=== PATIENT | male | born 1955 | race African-American/Black ===

== ENCOUNTER → 2020-05-30 | Day surgery (SDC) | payer MEDICARE, OTHER ==
[2020-05-25 12:13] LABS: BASOPHILS # (AUTO) 0.1 (0.0-0.1); BASOPHILS % 0.9 % (0.0-1.0); EOSINOPHILS # (AUTO) 0.2 (0.0-0.4); EOSINOPHILS % 3.4 % (0.0-6.0); HEMATOCRIT 32.8 % (38.2-49.6); HEMOGLOBIN 10.7 g/dL (14.0-18.0); LYMPHOCYTES # (AUTO) 2.2 (1.0-3.2); LYMPHOCYTES % 34.3 % (18.0-39.1); MEAN CORPUSCULAR HEMOGLOBIN 27.7 pg (28-32); MEAN CORPUSCULAR HGB CONC 32.6 g/dL (31-35); MONOCYTES # (AUTO) 0.6 (0.2-0.8); MONOCYTES % 9.8 % (4.4-11.3); NEUTROPHILS # (AUTO) 3.3 (2.1-6.9); NEUTROPHILS % 51.4 % (38.7-80.0); PLATELET COUNT 288 x10e3/uL (140-360); RED BLOOD COUNT 3.86 x10e6/uL (4.3-5.7); RED CELL DISTRIBUTION WIDTH 13.6 % (11.7-14.4)
[2020-05-25 12:27] LABS: ANION GAP 14.9 mmol/L (8-16); BLOOD UREA NITROGEN 16 mg/dL (7-26); BUN/CREATININE RATIO 17 (6-25); CALCIUM 9.7 mg/dL (8.4-10.2); CARBON DIOXIDE 22 mmol/L (22-29); CHLORIDE 107 mmol/L (98-107); CREATININE, SERUM 0.92 mg/dL (0.72-1.25); EST GLOMERULAR FILTRATION RATE > 60 ML/MIN (60-); GLUCOSE 115 mg/dL (74-118); POTASSIUM 3.9 mmol/L (3.5-5.1); SODIUM 140 mmol/L (136-145)
--- NOTE | 2020-05-25 13:31 | Diagnostic Imaging Report ---
EXAMINATION: PA and lateral views of the chest. COMPARISON: None CLINICAL HISTORY: Preoperative examination for urological procedure DISCUSSION: The lungs are well inflated. No focal airspace consolidation, pleural effusion, or pneumothorax. Tortuous thoracic aorta with otherwise unremarkable cardiomediastinal contour. No acute osseous abnormalities. IMPRESSION: No acute cardiopulmonary abnormalities. Signed by: Dr. Edward Wilson M.D. on 05/25/2020 1:27 PM
[~2020-05-30] MED LIST: AMLODIPINE BESYL5 MG PO; ASPIRIN81 MG PO; B&O 60MG R/S 60 MG SUPP PR ONE; CEFTRIAXONE SOD 1 GM/NS 50 ML 50 ML IV ONE; CRANBERRY250 MG PO; DEXAMETHASONE SOD PHOS INJ 4 MG/ML VIAL ONE; FENTANYL CITRATE/PF 100MCG/2 ML INJ ONE; FLUOXETINE HCL20 MG PO; FOLIC ACID PO; GENTAMICIN 80MG/NS 100 ML 100 ML IV ONE; IOPAMIDOL 300MG/ML 50ML INFUS..BTL IV ONE; LIDOCAINE HCL 2% LOCAL INJ 5 ML SDV VIAL INJ ONE; METFORMIN HCL500 MG PO; MULTIVITAMINS1 EAC7 PO; ONDANSETRON HCL INJ 2MG/ML 2ML 2 MG/ML VIAL ONE; PROPOFOL IV EMULSION 10 MG/ML 20 ML VIAL ONE; RIVASTIGMINE1.5 MG PO; SEVOFLURANE INHAL SOLN 250 ML PEN BTL ONE; VITAMIN D3 PO; XARELTO20 MG PO
[2020-05-30 14:05] VITALS: BP 148/91
--- NOTE | 2020-06-08 22:14 | Operative Report ---
DATE OF PROCEDURE: 05/30/2020 SURGEON: Nirmal Menon MD PREOPERATIVE DIAGNOSES: 1. Benign prostatic hyperplasia. 2. Urinary retention. 3. Gross hematuria. 4. Microscopic hematuria. 5. Urinary tract infections. 6. Chronic renal insufficiency. 7. Early traumatic hypospadias. OPERATIONS PERFORMED: 1. Cystourethroscopy with bilateral ureteral catheterization and retrograde ureteropyelography (separate procedure performed for the hematuria and urine tract infections and renal insufficiency). 2. Interpretation of retrograde ureteropyelography, no radiologist present. 3. Supervision of fluoroscopy, no radiologist present. 4. Cystourethroscopy with implantation of UroLift implants (separate surgery performed for the obstructive benign prostatic hyperplasia). 5. Complicated catheterization (separate procedure performed for the urinary retention and traumatic hypospadias). ANESTHESIA: General. COMPLICATIONS: None. CLINICAL SUMMARY: Juani Singh is a 64-year-old man with urinary retention. He was supposed to be on Flomax, but he ran out of it. The patient is brought for UroLift in hopes of getting him out of urinary retention. He and the family are aware of the risks of bleeding, infection, injury to adjacent structures, failure, potential need for additional procedures and elected to proceed. OPERATIVE PROCEDURE IN DETAIL: Informed consent was verified. Juani Singh was properly identified, taken to the operating room, placed on the cystoscopy table in supine position. Anesthesia was uneventfully begun. The patient was then carefully and gently repositioned in dorsal lithotomy position with all pressure points well padded. His Singh catheter was removed and his genitalia were prepared and draped in usual sterile fashion. The cystoscope sheath with the visual obturator in place was atraumatically inserted into the patient's urethra and was guided unremarkable. The unremarkable urethra through normal sphincteric region through the prostate bed, which was significant for severely obstructive BPH with kissing lateral lobes and elevated median bar and median lobe formation. Panendoscopy of the urinary bladder revealed heavy trabeculations, but no tumors and no stones were identified. An 8-[place] catheter was used to cannulate each ureter and retrograde ureteropyelograms were performed. Interpretation of retrograde ureteropyelography contrast was instilled in retrograde fashion bilaterally. The ureteral orifices were displaced in a cephalad fashion that was extremely dramatic indicating the patient has a very large prostate that is pushing the bladder in a cephalad direction. There was bilateral distal ureterectasis, most likely from obstruction from the thickened bladder wall and J-hooking was noted. Nevertheless, unobstructed drainage was observed bilaterally fluoroscopically, but there was ureteral tortuosity. No suspicious lesions and no filling defects and no stones could be identified. The cystoscope was withdrawn. The UroLift cystoscope was then placed. We then implanted 4 UroLift implants and all were implanted anterolaterally, 2 were placed on either side, 1.5 cm distal to the bladder neck and 2 were placed on either side at the level of the verumontanum. We did obtain an anterior continuous channel, which we hope will allow the patient to get out of urinary retention. Due to the fact that the patient has had chronic retention, we are going to allow his prostate to settle down after this procedure prior to doing a voiding trial in the office. The Singh catheter was then placed. It was placed all the way into the bladder with relatively little Singh catheter sticking out to this acute prostate and a very long prostatic urethra. It was irrigated to and fro to ensure it worked properly. Belladonna and opium suppository were placed revealing a large and 50 g prostate that is smooth and nonfluctuant without any nodules. The patient was then uneventfully reversed from anesthesia and taken to recovery room in stable condition. There were no complications to the procedure. He tolerated the procedure well. Explicit postop instructions were given. We will follow the patient up in the office for a fill/pull flow rate and ultrasound. Nirmal Menon MD [place]/[facility] /[id number] cc: Denys Smith MD
== END | disposition home or self-care (01) ==
LOC: OR 08:59
PROVIDERS: ATTEND Urology
DX: N40.1 Benign prostatic hyperplasia with lower urinary tract symptoms (principal); R39.14 Feeling of incomplete bladder emptying; R33.8 Other retention of urine; R39.12 Poor urinary stream; N13.8 Other obstructive and reflux uropathy; N32.89 Other specified disorders of bladder; N39.0 Urinary tract infection, site not specified; S37.39XA Other injury of urethra, initial encounter; Q54.8 Other hypospadias; E11.22 Type 2 diabetes mellitus with diabetic chronic kidney disease; I12.9 Hypertensive chronic kidney disease with stage 1 through stage 4 chronic kidney disease, or unspecified chronic kidney disease; N18.9 Chronic kidney disease, unspecified; R53.1 Weakness; F41.9 Anxiety disorder, unspecified; F32.9 Major depressive disorder, single episode, unspecified; F03.90 Unspecified dementia, unspecified severity, without behavioral disturbance, psychotic disturbance, mood disturbance, and anxiety; X58.XXXA Exposure to other specified factors, initial encounter; Z01.810 Encounter for preprocedural cardiovascular examination; Z01.812 Encounter for preprocedural laboratory examination; Z01.818 Encounter for other preprocedural examination; Z11.59 Encounter for screening for other viral diseases; Z79.02 Long term (current) use of antithrombotics/antiplatelets; Z79.82 Long term (current) use of aspirin; Z79.84 Long term (current) use of oral hypoglycemic drugs; Z68.31 Body mass index [BMI] 31.0-31.9, adult; Z86.718 Personal history of other venous thrombosis and embolism; Z84.1 Family history of disorders of kidney and ureter
CPT/HCPCS: 52005; C9740; 36415; 71046; 74420; 80048; 82948; 85025; 93005; J0696; J1100; J1580; J2001; J2405; J3010; L8699; U0002

== ENCOUNTER 2020-10-17 09:16 | Inpatient (IN) | payer MEDICARE ==
[2020-10-15 13:35] LABS: BASOPHILS % 0.7 % (0.0-1.0); EOSINOPHILS # (AUTO) 0.2 (0.0-0.4); EOSINOPHILS % 2.8 % (0.0-6.0); HEMATOCRIT 40.5 % (38.2-49.6); LYMPHOCYTES # (AUTO) 1.9 (1.0-3.2); LYMPHOCYTES % 32.6 % (18.0-39.1); MEAN CORPUSCULAR HEMOGLOBIN 27.7 pg (28-32); MEAN CORPUSCULAR HGB CONC 32.1 g/dL (31-35); MEAN CORPUSCULAR VOLUME 86.2 fL (81-99); MONOCYTES # (AUTO) 0.8 (0.2-0.8); MONOCYTES % 13.2 % (4.4-11.3); NEUTROPHILS # (AUTO) 2.9 (2.1-6.9); NEUTROPHILS % 50.4 % (38.7-80.0); PLATELET COUNT 260 x10e3/uL (140-360); RED CELL DISTRIBUTION WIDTH 13.5 % (11.7-14.4)
[2020-10-15 13:46] LABS: ANION GAP 13.1 mmol/L (8-16); BLOOD UREA NITROGEN 14 mg/dL (7-26); BUN/CREATININE RATIO 12 (6-25); CALCIUM 9.5 mg/dL (8.4-10.2); CARBON DIOXIDE 28 mmol/L (22-29); CHLORIDE 103 mmol/L (98-107); CREATININE, SERUM 1.15 mg/dL (0.72-1.25); EST GLOMERULAR FILTRATION RATE > 60 ML/MIN (60-); GLUCOSE 94 mg/dL (74-118); POTASSIUM 4.1 mmol/L (3.5-5.1); SODIUM 140 mmol/L (136-145)
[~2020-10-17] VITALS: Ht 172.7 cm; Wt 91.2 kg
[2020-10-17] VITALS (7 sets, daily range): BP systolic 92–153; BP diastolic 63–105
[~2020-10-17 09:16] MED LIST changes: -B&O 60MG R/S 60 MG SUPP PR ONE; -CEFTRIAXONE SOD 1 GM/NS 50 ML 50 ML IV ONE; -DEXAMETHASONE SOD PHOS INJ 4 MG/ML VIAL ONE; -FENTANYL CITRATE/PF 100MCG/2 ML INJ ONE; +FEROSUL325 MG PO; +FUROSEMIDE40 MG PO; -GENTAMICIN 80MG/NS 100 ML 100 ML IV ONE; -IOPAMIDOL 300MG/ML 50ML INFUS..BTL IV ONE; -LIDOCAINE HCL 2% LOCAL INJ 5 ML SDV VIAL INJ ONE; -ONDANSETRON HCL INJ 2MG/ML 2ML 2 MG/ML VIAL ONE; +POTASSIUM CHLO10 ME1 PO; -PROPOFOL IV EMULSION 10 MG/ML 20 ML VIAL ONE; -SEVOFLURANE INHAL SOLN 250 ML PEN BTL ONE
[2020-10-17] MEDS ORDERED: CEFTRIAXONE SOD 1 GM/NS 50 ML 50 ML IV ONE (09:45)
[2020-10-17] MEDS ORDERED: GENTAMICIN 80MG/NS 100 ML 200 ML IV ONE (09:45)
[2020-10-17] MEDS ORDERED: SODIUM CHLORIDE 0.9% 1000ML 1,000 ML ONE (10:06)
[2020-10-17] MEDS ORDERED: IOPAMIDOL 300MG/ML 50ML INFUS..BTL IV ONE (10:42)
[2020-10-17] MEDS ORDERED: B&O 60MG R/S 60 MG SUPP PR ONE (10:43)
[2020-10-17] MEDS ORDERED: PHENAZOPYRIDINE HCL 100 MG TAB PO PRN (11:00)
[2020-10-17] MEDS ORDERED: B&O 60MG R/S 60 MG SUPP PR PRN ×2 (11:00→13:45)
[2020-10-17] MEDS ORDERED: ONDANSETRON HCL INJ 2MG/ML 2ML 2 MG/ML VIAL IV PRN (11:00)
[2020-10-17] MEDS ORDERED: ACETAMINOPHEN/CODEINE 300MG - 30MG TAB PO PRN (11:00)
[2020-10-17] MEDS ORDERED: DIPHENHYDRAMINE HCL 25 MG CAP PO PRN (11:00)
[2020-10-17] MEDS ORDERED: HYDROMORPHONE 1MG/1ML INJ ONE (12:24)
[2020-10-17 12:30] LABS: BASOPHILS # (AUTO) 0.1 (0.0-0.1); BASOPHILS % 0.9 % (0.0-1.0); EOSINOPHILS # (AUTO) 0.1 (0.0-0.4); EOSINOPHILS % 1.8 % (0.0-6.0); HEMATOCRIT 38.7 % (38.2-49.6); HEMOGLOBIN 12.4 g/dL (14.0-18.0); LYMPHOCYTES # (AUTO) 2.3 (1.0-3.2); LYMPHOCYTES % 34.5 % (18.0-39.1); MEAN CORPUSCULAR HEMOGLOBIN 27.3 pg (28-32); MEAN CORPUSCULAR VOLUME 85.2 fL (81-99); MONOCYTES # (AUTO) 0.6 (0.2-0.8); MONOCYTES % 9.4 % (4.4-11.3); NEUTROPHILS # (AUTO) 3.6 (2.1-6.9); NEUTROPHILS % 53.3 % (38.7-80.0); PLATELET COUNT 216 x10e3/uL (140-360); RED BLOOD COUNT 4.54 x10e6/uL (4.3-5.7); RED CELL DISTRIBUTION WIDTH 13.4 % (11.7-14.4)
[2020-10-17 12:56] LABS: ANION GAP 15.9 mmol/L (8-16); BLOOD UREA NITROGEN 16 mg/dL (7-26); BUN/CREATININE RATIO 17 (6-25); CALCIUM 8.8 mg/dL (8.4-10.2); CARBON DIOXIDE 23 mmol/L (22-29); CHLORIDE 106 mmol/L (98-107); CREATININE, SERUM 0.92 mg/dL (0.72-1.25); EST GLOMERULAR FILTRATION RATE > 60 ML/MIN (60-); GLUCOSE 90 mg/dL (74-118); POTASSIUM 3.9 mmol/L (3.5-5.1); SODIUM 141 mmol/L (136-145)
[2020-10-17] MEDS: SOD CHL 0.45%/POT CHL 20MEQ 1,000 ML IV SCH ×2 (14:29→22:23)
[2020-10-17] MEDS: DOCUSATE SODIUM 100 MG CAP PO SCH (16:59)
[2020-10-17] MEDS: CEFTRIAXONE SOD 1 GM in SODIUM CHLORIDE 0.9% 50ML 50 ML IV SCH (20:18)
[2020-10-18] VITALS (7 sets, daily range): BP systolic 108–139; BP diastolic 66–96
[2020-10-18 06:02] LABS: BASOPHILS % 0.6 % (0.0-1.0); EOSINOPHILS # (AUTO) 0.1 (0.0-0.4); HEMATOCRIT 35.9 % (38.2-49.6); HEMOGLOBIN 11.7 g/dL (14.0-18.0); LYMPHOCYTES # (AUTO) 1.8 (1.0-3.2); LYMPHOCYTES % 28.5 % (18.0-39.1); MEAN CORPUSCULAR HEMOGLOBIN 27.8 pg (28-32); MEAN CORPUSCULAR HGB CONC 32.6 g/dL (31-35); MEAN CORPUSCULAR VOLUME 85.3 fL (81-99); MONOCYTES # (AUTO) 0.8 (0.2-0.8); MONOCYTES % 12.8 % (4.4-11.3); NEUTROPHILS # (AUTO) 3.6 (2.1-6.9); NEUTROPHILS % 55.8 % (38.7-80.0); PLATELET COUNT 223 x10e3/uL (140-360); RED BLOOD COUNT 4.21 x10e6/uL (4.3-5.7); RED CELL DISTRIBUTION WIDTH 13.6 % (11.7-14.4)
[2020-10-18] MEDS: SOD CHL 0.45%/POT CHL 20MEQ 1,000 ML IV SCH ×3 (06:25→22:44)
[2020-10-18 06:28] LABS: ANION GAP 10.4 mmol/L (8-16); BLOOD UREA NITROGEN 15 mg/dL (7-26); BUN/CREATININE RATIO 17 (6-25); CALCIUM 8.2 mg/dL (8.4-10.2); CARBON DIOXIDE 27 mmol/L (22-29); CHLORIDE 107 mmol/L (98-107); CREATININE, SERUM 0.89 mg/dL (0.72-1.25); EST GLOMERULAR FILTRATION RATE > 60 ML/MIN (60-); GLUCOSE 94 mg/dL (74-118); POTASSIUM 4.4 mmol/L (3.5-5.1); SODIUM 140 mmol/L (136-145)
[2020-10-18] MEDS: DOCUSATE SODIUM 100 MG CAP PO SCH ×2 (08:42→16:24)
[2020-10-18] MEDS ORDERED: DEXTROSE 50% SYRINGE 50 ML IV PRN (08:45)
[2020-10-18] MEDS: FOLIC ACID 1 MG TAB PO SCH (09:58)
[2020-10-18] MEDS: FERROUS SULFATE 325 MG TAB PO SCH (09:58)
[2020-10-18] MEDS: RIVASTIGMINE TARTRATE 1.5 MG CAP PO SCH ×2 (09:58→16:24)
[2020-10-18] MEDS: FLUOXETINE HCL 20 MG CAP PO SCH (09:58)
[2020-10-18] MEDS: MULTIVITAMINS/MINERALS TAB PO SCH (09:58)
[2020-10-18] MEDS: CHOLECALCIFEROL 1,000 UNIT TAB PO SCH (09:58)
[2020-10-18] MEDS: INSULIN LISPRO 100 UNIT/1 ML 3ML VIAL SQ SCH ×3 (11:30→20:22)
[2020-10-18] MEDS: CEFTRIAXONE SOD 1 GM in SODIUM CHLORIDE 0.9% 50ML 50 ML IV SCH (20:18)
[2020-10-18] MEDS: ACETAMINOPHEN/CODEINE 300MG - 30MG TAB PO PRN (22:21)
[2020-10-19] VITALS (8 sets, daily range): BP systolic 128–180; BP diastolic 82–116
[2020-10-19 05:26] LABS: BASOPHILS % 0.3 % (0.0-1.0); EOSINOPHILS # (AUTO) 0.1 (0.0-0.4); EOSINOPHILS % 2.1 % (0.0-6.0); HEMATOCRIT 37.3 % (38.2-49.6); HEMOGLOBIN 12.1 g/dL (14.0-18.0); LYMPHOCYTES # (AUTO) 1.7 (1.0-3.2); LYMPHOCYTES % 28.1 % (18.0-39.1); MEAN CORPUSCULAR HEMOGLOBIN 27.2 pg (28-32); MEAN CORPUSCULAR HGB CONC 32.4 g/dL (31-35); MEAN CORPUSCULAR VOLUME 83.8 fL (81-99); MONOCYTES # (AUTO) 0.8 (0.2-0.8); MONOCYTES % 13.1 % (4.4-11.3); NEUTROPHILS # (AUTO) 3.5 (2.1-6.9); NEUTROPHILS % 56.1 % (38.7-80.0); PLATELET COUNT 212 x10e3/uL (140-360); RED BLOOD COUNT 4.45 x10e6/uL (4.3-5.7); RED CELL DISTRIBUTION WIDTH 13.3 % (11.7-14.4)
[2020-10-19 05:57] LABS: ANION GAP 12.1 mmol/L (8-16); BLOOD UREA NITROGEN 11 mg/dL (7-26); BUN/CREATININE RATIO 13 (6-25); CALCIUM 8.4 mg/dL (8.4-10.2); CARBON DIOXIDE 25 mmol/L (22-29); CHLORIDE 107 mmol/L (98-107); CREATININE, SERUM 0.83 mg/dL (0.72-1.25); EST GLOMERULAR FILTRATION RATE > 60 ML/MIN (60-); GLUCOSE 103 mg/dL (74-118); POTASSIUM 4.1 mmol/L (3.5-5.1); SODIUM 140 mmol/L (136-145)
[2020-10-19] MEDS: SOD CHL 0.45%/POT CHL 20MEQ 1,000 ML IV SCH ×4 (06:47→19:00)
[2020-10-19] MEDS: INSULIN LISPRO 100 UNIT/1 ML 3ML VIAL SQ SCH ×4 (07:30→21:00)
[2020-10-19] MEDS: RIVASTIGMINE TARTRATE 1.5 MG CAP PO SCH ×2 (08:48→17:06)
[2020-10-19] MEDS: FOLIC ACID 1 MG TAB PO SCH (08:48)
[2020-10-19] MEDS: MULTIVITAMINS/MINERALS TAB PO SCH (08:48)
[2020-10-19] MEDS: FLUOXETINE HCL 20 MG CAP PO SCH (08:48)
[2020-10-19] MEDS: AMLODIPINE BESYLATE 5 MG TAB PO SCH (08:48)
[2020-10-19] MEDS: DOCUSATE SODIUM 100 MG CAP PO SCH ×2 (08:48→17:06)
[2020-10-19] MEDS: FERROUS SULFATE 325 MG TAB PO SCH (08:48)
[2020-10-19] MEDS: CHOLECALCIFEROL 1,000 UNIT TAB PO SCH (08:49)
[2020-10-19] MEDS: ACETAMINOPHEN/CODEINE 300MG - 30MG TAB PO PRN (22:19)
[2020-10-19] MEDS: CEFTRIAXONE SOD 1 GM in SODIUM CHLORIDE 0.9% 50ML 50 ML IV SCH (22:19)
[2020-10-20] VITALS (9 sets, daily range): BP systolic 133–169; BP diastolic 87–97
[2020-10-20] MEDS: SOD CHL 0.45%/POT CHL 20MEQ 1,000 ML IV SCH ×3 (03:00→19:00)
[2020-10-20 06:49] LABS: BASOPHILS % 0.7 % (0.0-1.0); EOSINOPHILS # (AUTO) 0.2 (0.0-0.4); EOSINOPHILS % 3.4 % (0.0-6.0); HEMATOCRIT 39.5 % (38.2-49.6); HEMOGLOBIN 12.9 g/dL (14.0-18.0); LYMPHOCYTES # (AUTO) 1.6 (1.0-3.2); LYMPHOCYTES % 26.6 % (18.0-39.1); MEAN CORPUSCULAR HEMOGLOBIN 27.4 pg (28-32); MEAN CORPUSCULAR HGB CONC 32.7 g/dL (31-35); MEAN CORPUSCULAR VOLUME 83.9 fL (81-99); MONOCYTES # (AUTO) 0.7 (0.2-0.8); MONOCYTES % 11.6 % (4.4-11.3); NEUTROPHILS # (AUTO) 3.4 (2.1-6.9); NEUTROPHILS % 57.4 % (38.7-80.0); PLATELET COUNT 233 x10e3/uL (140-360); RED BLOOD COUNT 4.71 x10e6/uL (4.3-5.7); RED CELL DISTRIBUTION WIDTH 13.2 % (11.7-14.4)
[2020-10-20 07:07] LABS: ANION GAP 11.2 mmol/L (8-16); BLOOD UREA NITROGEN 10 mg/dL (7-26); BUN/CREATININE RATIO 11 (6-25); CALCIUM 9.1 mg/dL (8.4-10.2); CARBON DIOXIDE 23 mmol/L (22-29); CHLORIDE 108 mmol/L (98-107); CREATININE, SERUM 0.87 mg/dL (0.72-1.25); EST GLOMERULAR FILTRATION RATE > 60 ML/MIN (60-); GLUCOSE 106 mg/dL (74-118); POTASSIUM 4.2 mmol/L (3.5-5.1); SODIUM 138 mmol/L (136-145)
[2020-10-20] MEDS: INSULIN LISPRO 100 UNIT/1 ML 3ML VIAL SQ SCH ×4 (07:30→21:00)
[2020-10-20] MEDS: CHOLECALCIFEROL 1,000 UNIT TAB PO SCH (09:00)
[2020-10-20] MEDS: FERROUS SULFATE 325 MG TAB PO SCH (09:00)
[2020-10-20] MEDS: AMLODIPINE BESYLATE 5 MG TAB PO SCH (09:00)
[2020-10-20] MEDS: MULTIVITAMINS/MINERALS TAB PO SCH (09:00)
[2020-10-20] MEDS: FOLIC ACID 1 MG TAB PO SCH (09:00)
[2020-10-20] MEDS: RIVASTIGMINE TARTRATE 1.5 MG CAP PO SCH ×2 (09:00→17:00)
[2020-10-20] MEDS: DOCUSATE SODIUM 100 MG CAP PO SCH ×2 (09:00→17:00)
[2020-10-20] MEDS: FLUOXETINE HCL 20 MG CAP PO SCH (09:00)
[2020-10-20] MEDS: CEFTRIAXONE SOD 1 GM in SODIUM CHLORIDE 0.9% 50ML 50 ML IV SCH (21:22)
[2020-10-21] VITALS (8 sets, daily range): BP systolic 115–155; BP diastolic 79–100
[2020-10-21] MEDS: SOD CHL 0.45%/POT CHL 20MEQ 1,000 ML IV SCH ×3 (05:52→19:00)
[2020-10-21 06:40] LABS: BASOPHILS % 0.3 % (0.0-1.0); EOSINOPHILS # (AUTO) 0.3 (0.0-0.4); EOSINOPHILS % 4.3 % (0.0-6.0); HEMATOCRIT 40.1 % (38.2-49.6); LYMPHOCYTES # (AUTO) 1.7 (1.0-3.2); MEAN CORPUSCULAR HEMOGLOBIN 27.5 pg (28-32); MEAN CORPUSCULAR HGB CONC 32.4 g/dL (31-35); MONOCYTES # (AUTO) 0.8 (0.2-0.8); NEUTROPHILS % 52.1 % (38.7-80.0); PLATELET COUNT 222 x10e3/uL (140-360); RED BLOOD COUNT 4.72 x10e6/uL (4.3-5.7); RED CELL DISTRIBUTION WIDTH 13.2 % (11.7-14.4)
[2020-10-21 06:53] LABS: ANION GAP 16.2 mmol/L (8-16); BLOOD UREA NITROGEN 12 mg/dL (7-26); BUN/CREATININE RATIO 14 (6-25); CALCIUM 9.3 mg/dL (8.4-10.2); CARBON DIOXIDE 21 mmol/L (22-29); CHLORIDE 107 mmol/L (98-107); CREATININE, SERUM 0.83 mg/dL (0.72-1.25); EST GLOMERULAR FILTRATION RATE > 60 ML/MIN (60-); GLUCOSE 102 mg/dL (74-118); POTASSIUM 4.2 mmol/L (3.5-5.1); SODIUM 140 mmol/L (136-145)
[2020-10-21] MEDS: INSULIN LISPRO 100 UNIT/1 ML 3ML VIAL SQ SCH ×4 (07:30→19:27)
[2020-10-21] MEDS: RIVASTIGMINE TARTRATE 1.5 MG CAP PO SCH ×2 (09:00→17:00)
[2020-10-21] MEDS: FERROUS SULFATE 325 MG TAB PO SCH (09:00)
[2020-10-21] MEDS: MULTIVITAMINS/MINERALS TAB PO SCH (09:00)
[2020-10-21] MEDS: FOLIC ACID 1 MG TAB PO SCH (09:00)
[2020-10-21] MEDS: CHOLECALCIFEROL 1,000 UNIT TAB PO SCH (09:00)
[2020-10-21] MEDS: FLUOXETINE HCL 20 MG CAP PO SCH (09:00)
[2020-10-21] MEDS: DOCUSATE SODIUM 100 MG CAP PO SCH ×2 (09:00→17:00)
[2020-10-21] MEDS: AMLODIPINE BESYLATE 5 MG TAB PO SCH (09:00)
[2020-10-21] MEDS ORDERED: SODIUM CHLORIDE 0.9% 500ML 500 ML ONE (15:51)
[2020-10-21] MEDS: CEFTRIAXONE SOD 1 GM in SODIUM CHLORIDE 0.9% 50ML 50 ML IV SCH (20:24)
[2020-10-21] MEDS: ACETAMINOPHEN/CODEINE 300MG - 30MG TAB PO PRN (20:26)
[2020-10-22] VITALS (8 sets, daily range): BP systolic 130–151; BP diastolic 86–94
[2020-10-22] MEDS: SOD CHL 0.45%/POT CHL 20MEQ 1,000 ML IV SCH (02:46)
[2020-10-22] MEDS: INSULIN LISPRO 100 UNIT/1 ML 3ML VIAL SQ SCH ×4 (07:30→20:04)
[2020-10-22] MEDS: RIVASTIGMINE TARTRATE 1.5 MG CAP PO SCH ×2 (08:25→16:33)
[2020-10-22] MEDS: CHOLECALCIFEROL 1,000 UNIT TAB PO SCH (08:25)
[2020-10-22] MEDS: DOCUSATE SODIUM 100 MG CAP PO SCH ×2 (08:25→16:33)
[2020-10-22] MEDS: FERROUS SULFATE 325 MG TAB PO SCH (08:25)
[2020-10-22] MEDS: AMLODIPINE BESYLATE 5 MG TAB PO SCH (08:25)
[2020-10-22] MEDS: FOLIC ACID 1 MG TAB PO SCH (08:25)
[2020-10-22] MEDS: MULTIVITAMINS/MINERALS TAB PO SCH (08:25)
[2020-10-22] MEDS: FLUOXETINE HCL 20 MG CAP PO SCH (08:25)
[2020-10-22] MEDS ORDERED: B&O 60MG R/S 60 MG SUPP PR PRN (09:45)
[2020-10-22] MEDS ORDERED: ACETAMINOPHEN/CODEINE 300MG - 30MG TAB PO PRN (11:00)
[2020-10-23 03:59] VITALS: BP 116/68
[2020-10-23] MEDS: INSULIN LISPRO 100 UNIT/1 ML 3ML VIAL SQ SCH ×2 (07:27→11:30)
[2020-10-23 07:54] VITALS: BP 128/96
[2020-10-23 07:55] VITALS: BP 128/96
[2020-10-23] MEDS: FLUOXETINE HCL 20 MG CAP PO SCH (08:35)
[2020-10-23] MEDS: AMLODIPINE BESYLATE 5 MG TAB PO SCH (08:35)
[2020-10-23] MEDS: DOCUSATE SODIUM 100 MG CAP PO SCH (08:35)
[2020-10-23] MEDS: FERROUS SULFATE 325 MG TAB PO SCH (08:35)
[2020-10-23] MEDS: RIVASTIGMINE TARTRATE 1.5 MG CAP PO SCH (08:35)
[2020-10-23] MEDS: MULTIVITAMINS/MINERALS TAB PO SCH (08:35)
[2020-10-23] MEDS: CHOLECALCIFEROL 1,000 UNIT TAB PO SCH (08:35)
[2020-10-23] MEDS: FOLIC ACID 1 MG TAB PO SCH (08:35)
[2020-10-23] MEDS ORDERED: LEVOFLOXACIN 500 MG TAB PO SCH (09:00)
[2020-10-23] MEDS ORDERED: TYLENOL # 31 EA PO (11:07)
[2020-10-23] MEDS ORDERED: LEVOFLOXACIN250 MG PO (11:07)
[2020-10-23 11:52] VITALS: BP 143/92
== END 2020-10-23 13:45 | disposition home or self-care (01) | DRG 713 ==
LOC: OR 09:16 → PACU V 10:53 → MED/SURG 13:20
PROVIDERS: ADMIT Internal Medicine; ATTEND Internal Medicine
PROC: 0V508ZZ Destruction of Prostate, Via Natural or Artificial Opening Endoscopic (ICD-10-PCS; principal; 2020-10-17 11:30)
PROC: BT141ZZ Fluoroscopy of Kidneys, Ureters and Bladder using Low Osmolar Contrast (ICD-10-PCS; 2020-10-17 11:30)
DX: N40.1 Benign prostatic hyperplasia with lower urinary tract symptoms (principal); N13.8 Other obstructive and reflux uropathy; N13.6 Pyonephrosis; E11.9 Type 2 diabetes mellitus without complications; I48.0 Paroxysmal atrial fibrillation; I10 Essential (primary) hypertension; E78.00 Pure hypercholesterolemia, unspecified; E78.5 Hyperlipidemia, unspecified; F03.90 Unspecified dementia, unspecified severity, without behavioral disturbance, psychotic disturbance, mood disturbance, and anxiety; Z79.01 Long term (current) use of anticoagulants; R31.0 Gross hematuria; N39.41 Urge incontinence; R39.14 Feeling of incomplete bladder emptying; N32.81 Overactive bladder; Z20.822 Contact with and (suspected) exposure to COVID-19; Z79.84 Long term (current) use of oral hypoglycemic drugs
CPT/HCPCS: 36415; 74420; 80048; 82948; 83735; 85025; 93005; C1758; J0696; J1170; J1580; J7030; J7040; U0002